=== PATIENT | female | born 1970 | race Caucasian/White ===

== ENCOUNTER 2017-10-30 20:26 | Inpatient (IN) | payer OTHER ==
[2017-10-30 21:07] VITALS: BMI 19.8
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
[2017-10-30] MEDS ORDERED: MENTHOL/PHENOL 1 EACH UD MM PRN (22:01)
[2017-10-30] MEDS ORDERED: hydrOXYzine PAMOATE 50 MG CAPSULE (FP) PO PRN (22:01)
[2017-10-30] MEDS ORDERED: MAGNESIUM HYDROX 2400MG/30ML ORAL SUSPENSION 30 ML CUP PO PRN (22:01)
[2017-10-30] MEDS ORDERED: P-EPHED 60MG/TRIPROLIDI 2.5MG TABLET PO PRN (22:01)
[2017-10-30] MEDS ORDERED: LOPERAMIDE HCL 2 MG CAPSULE PO PRN (22:01)
[2017-10-30] MEDS ORDERED: ACETAMINOPHEN 325 MG TABLET (FP) PO PRN (22:01)
[2017-10-30] MEDS ORDERED: MAG HYDROX/AL HYDROX/SIMETH 30 ML UNIT-DOSE CUP PO PRN (22:01)
[2017-10-30] MEDS ORDERED: NICOTINE POLACRILEX 2 MG GUM BC PRN (22:01)
[2017-10-30] MEDS ORDERED: MAGNESIUM CITRATE 300 ML BOTTLE PO PRN (22:01)
[2017-10-30] MEDS ORDERED: guaiFENesin/D-METHORPHAN HB 10 ML UNIT-DOSE CUPS PO PRN (22:01)
[2017-10-30] MEDS ORDERED: IBUPROFEN 400 MG TABLET (FP) PO PRN (22:01)
[2017-10-30] MEDS ORDERED: diphenhydrAMINE HCL 25 MG CAPSULE (FP) PO PRN (22:04)
[2017-10-30] MEDS ORDERED: METHADONE HCL 10 MG TABLET (FOR DETOX USE ONLY) PO ONE (23:00)
[2017-10-30] MEDS: METHADONE HCL 10 MG TABLET (FOR DETOX USE ONLY) PO ONE ×2 (23:33→23:34)
[2017-10-30] MEDS: RANITIDINE HCL 150 MG TABLET (FP) PO SCH (23:34)
[2017-10-30] MEDS: diazePAM 5 MG TABLET PO PRN (23:34)
[2017-10-31 00:51] LABS: URINE APPEARANCE CLEAR; URINE BILIRUBIN NEGATIVE (NEGATIVE); URINE BLOOD NEGATIVE (NEGATIVE); URINE COLOR DKYELLOW; URINE GLUCOSE (UA) NEGATIVE (NEGATIVE); URINE KETONE NEGATIVE (NEGATIVE); URINE LEUK ESTERASE NEGATIVE (NEGATIVE); URINE NITRITE NEGATIVE (NEGATIVE); URINE PROTEIN NEGATIVE (NEGATIVE)
[2017-10-31] MEDS ORDERED: METHADONE HCL 10 MG TABLET (FOR DETOX USE ONLY) PO ONE (10:00)
[2017-10-31 10:30] LABS: HEMOGLOBIN 12.8 GM/dL (10.7-15.3); MCHC 33.6 g/dl (32.0-36.0); MEAN CELL VOLUME 95.5 fl (80-96); MEAN PLT VOLUME 9.3 fl (7.5-11.1); PLATELET COUNT 211 K/MM3 (134-434); RBC 3.98 M/mm3 (3.60-5.2); RDW 13.2 % (11.6-15.6); WHITE BLOOD COUNT 7.9 K/mm3 (4.0-10.0)
[2017-10-31 10:35] LABS: ALBUMIN 3.8 g/dl (3.4-5.0); ANION GAP 6 (8-16); BLOOD UREA NITROGEN 20 mg/dL (7-18); CALCIUM 8.2 mg/dL (8.5-10.1); CHLORIDE 105 mmol/L (98-107); CO2 27 mmol/L (21-32); GLUCOSE,RANDOM 79 mg/dL (74-106); POTASSIUM 3.7 mmol/L (3.5-5.1); SODIUM 138 mmol/L (136-145)
[2017-10-31 10:39] LABS: ALK PHOS 66 U/L (45-117); BILIRUBIN,TOTAL 0.4 mg/dL (0.2-1.0); CREATININE 0.6 mg/dL (0.55-1.02); SGOT/AST 14 U/L (15-37); SGPT/ALT 15 U/L (12-78); TOT PROT 6.9 g/dl (6.4-8.2)
[2017-10-31] MEDS: NICOTINE 14 MG/24 HOURS TOPICAL PATCH TD SCH (10:51)
[2017-10-31] MEDS: diazePAM 5 MG TABLET PO PRN ×3 (10:51→22:45)
[2017-10-31] MEDS: PRENATAL VITAMINS W/ FOLIC ACID TABLET (FP) PO SCH (10:51)
[2017-10-31] MEDS: RANITIDINE HCL 150 MG TABLET (FP) PO SCH (10:52)
--- NOTE | 2017-10-31 16:00 | EKG ---
Test Reason : Blood Pressure : / mmHG Vent. Rate : 064 BPM Atrial Rate : 064 BPM P-R Int : 136 ms QRS Dur : 074 ms QT Int : 370 ms P-R-T Axes : 066 056 050 degrees QTc Int : 381 ms NORMAL SINUS RHYTHM NORMAL ECG NO PREVIOUS ECGS AVAILABLE Confirmed by KORI VALDOVINOS, CLINT ([id number]) on 10/31/2017 3:59:59 PM Referred By: Confirmed By:CLINT SHEIKH MD
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
--- NOTE | 2017-10-31 19:13 | PN ---
S COWS - Scale Resting Pulse: 0= [place] 80 or Below Sweatin=Flushed/Facial Moisture Restless Observation: 3= Extraneous Movement Pupil Size: 1= Pupils >than Normal Bone or Joint Aches: 1= Mild Discomfort Runny Nose/ Eye Tearin= Nasal Congestion GI Upset > 30mins: 1= Stomach Cramp Tremor Observation of Outstretched Hands: 2= Slight Tremor Visible Yawning Observation: 1= 1-2x During Session Anxiety or Irritability: 2=Irritable/Anxious Goose Flesh Skin: 0=Smooth Skin COWS Score: 14 S Progress Note (SOAP) Subjective: nausea weak shakes Objective: A & O x 3 No acute distress noted Vital Signs Temperature 98.1 F 10/31/17 18:37 Pulse Rate 72 10/31/17 18:37 Respiratory Rate 18 10/31/17 18:37 Blood Pressure 117/67 10/31/17 18:37 O2 Sat by Pulse Oximetry (%) Laboratory Last Values WBC 7.9 K/mm3 (4.0-10.0) 10/31/17 08:00 RBC 3.98 M/mm3 (3.60-5.2) 10/31/17 08:00 Hgb 12.8 GM/dL (10.7-15.3) 10/31/17 08:00 Hct 38.0 % (32.4-45.2) 10/31/17 08:00 MCV 95.5 fl (80-96) 10/31/17 08:00 MCH 32.0 pg (25.7-33.7) 10/31/17 08:00 MCHC 33.6 g/dl (32.0-36.0) 10/31/17 08:00 RDW 13.2 % (11.6-15.6) 10/31/17 08:00 Plt Count 211 K/MM3 (134-434) 10/31/17 08:00 MPV 9.3 fl (7.5-11.1) 10/31/17 08:00 Sodium 138 mmol/L (136-145) 10/31/17 08:00 Potassium 3.7 mmol/L (3.5-5.1) 10/31/17 08:00 Chloride 105 mmol/L (98-107) 10/31/17 08:00 Carbon Dioxide 27 mmol/L (21-32) 10/31/17 08:00 Anion Gap 6 (8-16) L 10/31/17 08:00 BUN 20 mg/dL (7-18) H 10/31/17 08:00 Creatinine 0.6 mg/dL (0.55-1.02) 10/31/17 08:00 Creat Clearance w eGFR > 60 (>60) 10/31/17 08:00 Random Glucose 79 mg/dL (74-106) 10/31/17 08:00 Calcium 8.2 mg/dL (8.5-10.1) L 10/31/17 08:00 Total Bilirubin 0.4 mg/dL (0.2-1.0) D 10/31/17 08:00 AST 14 U/L (15-37) L 10/31/17 08:00 ALT 15 U/L (12-78) 10/31/17 08:00 Alkaline Phosphatase 66 U/L (45-117) 10/31/17 08:00 Total Protein 6.9 g/dl (6.4-8.2) 10/31/17 08:00 Albumin 3.8 g/dl (3.4-5.0) 10/31/17 08:00 Urine Color Dkyellow 10/30/17 22:59 Urine Appearance Clear 10/30/17 22:59 Urine pH 6.0 (5.0-8.0) 10/30/17 22:59 Ur Specific [place] 1.023 (1.001-1.035) 10/30/17 22:59 Urine Protein Negative (NEGATIVE) 10/30/17 22:59 Urine Glucose (UA) Negative (NEGATIVE) 10/30/17 22:59 Urine Ketones Negative (NEGATIVE) 10/30/17 22:59 Urine Blood Negative (NEGATIVE) 10/30/17 22:59 Urine Nitrite Negative (NEGATIVE) 10/30/17 22:59 Urine Bilirubin Negative (NEGATIVE) 10/30/17 22:59 Urine Urobilinogen 2.0 mg/dL (0.2-1.0) H 10/30/17 22:59 Ur Leukocyte Esterase Negative (NEGATIVE) 10/30/17 22:59 RPR Titer Nonreactive (NONREACTIVE) 10/31/17 08:00 labs noted Assessment: 02/10/18 19:12 withdrawal sx Plan: continue detox
[2017-10-31] MEDS ORDERED: traZODone HCL 50 MG TABLET (FP) PO SCH (22:00)
[2017-10-31] MEDS: THIAMINE HCL 100 MG TABLET (FP) PO SCH (22:45)
[2017-10-31] MEDS: busPIRone HCL 10 MG TABLET (FP) PO SCH (22:45)
[2017-11-01] MEDS ORDERED: METHADONE HCL 5 MG TABLET (FOR DETOX USE ONLY) PO ONE (10:00)
[2017-11-01] MEDS: RANITIDINE HCL 150 MG TABLET (FP) PO SCH (10:42)
[2017-11-01] MEDS: PRENATAL VITAMINS W/ FOLIC ACID TABLET (FP) PO SCH (10:42)
[2017-11-01] MEDS: busPIRone HCL 10 MG TABLET (FP) PO SCH ×2 (10:42→22:39)
[2017-11-01] MEDS: diazePAM 5 MG TABLET PO PRN ×3 (10:44→22:39)
--- NOTE | 2017-11-01 10:52 | PN ---
Psychiatric Progress Note Vital Signs: Vital Signs Period Temp Pulse Resp BP Sys/Taylor Pulse Ox Last 24 Hr 95.9 F-98.1 F 48-72 16-18 101-117/57-76 Date of Session: 11/01/17 Chief Complaint:: Insomnia HPI: Patient admitted on 10/30/17 for inpatient detox for heroin and marijuana Current Medications: Active Medications Generic Name Dose Route Start Last Admin Trade Name Freq PRN Reason Stop Dose Admin Acetaminophen 650 mg 10/30/17 22:01 Tylenol - PO Q4H PRN FEVER Al Hydroxide/Mg Hydroxide 30 ml 10/30/17 22:01 Mylanta Oral Suspension - PO Q6H PRN DYSPEPSIA Bupropion HCl 150 mg 11/01/17 10:00 11/01/17 10:41 Wellbutrin Xl - PO 150 mg DAILY SONIA Administration Buspirone HCl 10 mg 10/31/17 22:00 11/01/17 10:42 Buspar - PO 10 mg BID SONIA Administration Diazepam 10 mg 10/30/17 22:01 11/01/17 10:44 Valium - PO 11/02/17 22:00 10 mg Q4H PRN Administration WITHDRAWAL(CONT SUBST) Eucalyptus/Menthol/Phenol/Sorbitol 1 each 10/30/17 22:01 Cepastat Lozenge - MM Q4H PRN SORE THROAT Guaifenesin 10 ml 10/30/17 22:01 Robitussin Dm - PO Q6H PRN COUGH Hydroxyzine Pamoate 50 mg 10/30/17 22:01 Vistaril - PO Q4H PRN AGITATION Ibuprofen 400 mg 10/30/17 22:01 Motrin - PO Q6H PRN PAIN LEVEL 4-6 Loperamide HCl 4 mg 10/30/17 22:01 Imodium - PO Q6H PRN DIARRHEA Magnesium Citrate 300 ml 10/30/17 22:01 Citroma - PO Q48H PRN CONSTIPATION Magnesium Hydroxide 30 ml 10/30/17 22:01 Milk Of Magnesia - PO DAILY PRN CONSTIPATION Methadone HCl 5 mg 11/04/17 06:00 Dolophine - PO 11/04/17 06:01 ONCE@0600 ONE Methadone HCl 15 mg 11/02/17 10:00 Dolophine - PO 11/02/17 10:01 ONCE ONE Methadone HCl 10 mg 11/03/17 10:00 Dolophine - PO 11/03/17 10:01 ONCE ONE Nicotine 14 mg 10/31/17 10:00 10/31/17 10:51 Nicoderm Patch - TD 14 mg DAILY SONIA Administration Nicotine Polacrilex 2 mg 10/30/17 22:01 Nicorette Gum - BC Q2H PRN NICOTINE REPLACEMENT RX Multivit/Folic Acid/Iron 1 tab 10/31/17 10:00 11/01/17 10:42 Vitamins (Sjr) - PO 1 tab DAILY SONIA Administration Pseudoephedrine/Triprolidine 1 combo 10/30/17 22:01 Actifed - PO TID PRN NASAL CONGESTION Ranitidine HCl 150 mg 10/30/17 23:00 11/01/17 10:42 Zantac - PO 150 mg DAILY SONIA Administration Thiamine HCl 100 mg 10/31/17 22:00 10/31/17 22:45 Vitamin B1 - PO 100 mg HS SONIA Administration Medication(s) Change(s): Increase Trazadone dosage to 100 mg po Hs Current Side Effect: No Lab tests ordered: Yes Lab tests reviewed: Yes Provider note:: Patient reports sleeping poorly despite taking Trazadone 50 mg at bedtime last night. Told marketing writer that she usually takes 150 mg at bedtime at home. Requests that medication dosage be increased to at least 100 mg Total face to face time:: 15 Mental Status Exam - Mental Status Exam Alert and Oriented to: Time, Place, Person Cognitive Function: Fair Patient Appearance: Well Groomed Mood: Hopeful, Euthymic Affect: Appropriate Patient Behavior: Cooperative Speech Pattern: Clear Voice Loudness: Normal Thought Process: Intact, Goal Oriented Thought Disorder: Not Present Hallucinations: Denies Suicidal Ideation: Denies Homicidal Ideation: Denies Insight/Judgement: Poor Sleep: Poorly Appetite: Good Muscle strength/Tone: Normal Gait/Station: Normal Psychiatric Treatment Plan - Problem List (1) Substance induced mood disorder Current Visit: Yes (2) Substance-induced sleep disorder Current Visit: Yes (3) Depressive disorder Current Visit: Yes (4) Opioid dependence with withdrawal Current Visit: Yes (5) Cannabis dependence Current Visit: Yes (6) Nicotine dependence Current Visit: Yes Qualifiers: Nicotine product type: cigarettes Substance use status: uncomplicated Qualified Code(s): F17.210 - Nicotine dependence, cigarettes, uncomplicated Initial treatment plan: 1) Discontinue Trazadone 50 mg po HS. 2) Start Trazadone 100 mg po HS. 3) Continue inpatient detoxification
--- NOTE | 2017-11-01 12:16 | PN ---
S COWS - Scale Resting Pulse: 0= [place] 80 or Below Sweatin= Chills/Flushing Restless Observation: 1= Difficult to Sit Still Pupil Size: 0= Normal to Room Light Bone or Joint Aches: 2= Severe Diffuse Aches Runny Nose/ Eye Tearin= Nasal Congestion GI Upset > 30mins: 1= Stomach Cramp Tremor Observation of Outstretched Hands: 1= Tremor [place], Not Seen Yawning Observation: 2= >3x During Session Anxiety or Irritability: 2=Irritable/Anxious Goose Flesh Skin: 0=Smooth Skin COWS Score: 11 S Progress Note (SOAP) Subjective: joint aches tremor anxiety irritable agitation Objective: 11/01/17 12:15 Vital Signs Temperature 95.9 F L 11/01/17 10:18 Pulse Rate 60 11/01/17 10:18 Respiratory Rate 18 11/01/17 10:18 Blood Pressure 117/64 11/01/17 10:18 O2 Sat by Pulse Oximetry (%) Laboratory Last Values WBC 7.9 K/mm3 (4.0-10.0) 10/31/17 08:00 RBC 3.98 M/mm3 (3.60-5.2) 10/31/17 08:00 Hgb 12.8 GM/dL (10.7-15.3) 10/31/17 08:00 Hct 38.0 % (32.4-45.2) 10/31/17 08:00 MCV 95.5 fl (80-96) 10/31/17 08:00 MCH 32.0 pg (25.7-33.7) 10/31/17 08:00 MCHC 33.6 g/dl (32.0-36.0) 10/31/17 08:00 RDW 13.2 % (11.6-15.6) 10/31/17 08:00 Plt Count 211 K/MM3 (134-434) 10/31/17 08:00 MPV 9.3 fl (7.5-11.1) 10/31/17 08:00 Sodium 138 mmol/L (136-145) 10/31/17 08:00 Potassium 3.7 mmol/L (3.5-5.1) 10/31/17 08:00 Chloride 105 mmol/L (98-107) 10/31/17 08:00 Carbon Dioxide 27 mmol/L (21-32) 10/31/17 08:00 Anion Gap 6 (8-16) L 10/31/17 08:00 BUN 20 mg/dL (7-18) H 10/31/17 08:00 Creatinine 0.6 mg/dL (0.55-1.02) 10/31/17 08:00 Creat Clearance w eGFR > 60 (>60) 10/31/17 08:00 Random Glucose 79 mg/dL (74-106) 10/31/17 08:00 Calcium 8.2 mg/dL (8.5-10.1) L 10/31/17 08:00 Total Bilirubin 0.4 mg/dL (0.2-1.0) D 10/31/17 08:00 AST 14 U/L (15-37) L 10/31/17 08:00 ALT 15 U/L (12-78) 10/31/17 08:00 Alkaline Phosphatase 66 U/L (45-117) 10/31/17 08:00 Total Protein 6.9 g/dl (6.4-8.2) 10/31/17 08:00 Albumin 3.8 g/dl (3.4-5.0) 10/31/17 08:00 Urine Color Dkyellow 10/30/17 22:59 Urine Appearance Clear 10/30/17 22:59 Urine pH 6.0 (5.0-8.0) 10/30/17 22:59 Ur Specific [place] 1.023 (1.001-1.035) 10/30/17 22:59 Urine Protein Negative (NEGATIVE) 10/30/17 22:59 Urine Glucose (UA) Negative (NEGATIVE) 10/30/17 22:59 Urine Ketones Negative (NEGATIVE) 10/30/17 22:59 Urine Blood Negative (NEGATIVE) 10/30/17 22:59 Urine Nitrite Negative (NEGATIVE) 10/30/17 22:59 Urine Bilirubin Negative (NEGATIVE) 10/30/17 22:59 Urine Urobilinogen 2.0 mg/dL (0.2-1.0) H 10/30/17 22:59 Ur Leukocyte Esterase Negative (NEGATIVE) 10/30/17 22:59 RPR Titer Nonreactive (NONREACTIVE) 10/31/17 08:00 HIV 1&2 Antibody Screen Negative 10/31/17 08:00 HIV P24 Antigen Negative 10/31/17 08:00 lab noted Assessment: 11/01/17 12:15 withdrawal sx Plan: continue detox
[2017-11-01] MEDS: NICOTINE 14 MG/24 HOURS TOPICAL PATCH TD SCH ×2 (13:03→13:13)
[2017-11-01] MEDS: THIAMINE HCL 100 MG TABLET (FP) PO SCH (22:39)
[2017-11-01] MEDS: traZODone HCL 100 MG TABLET (FP) PO SCH (22:39)
--- NOTE | 2017-11-02 09:45 | PN ---
BHS Progress Note (SOAP) Subjective: anxiety joint aches irritable restlessness agitation Objective: 11/02/17 09:44 Vital Signs Temperature 97.7 F 11/02/17 06:36 Pulse Rate 70 11/02/17 06:36 Respiratory Rate 16 11/02/17 06:36 Blood Pressure 99/59 11/02/17 06:36 O2 Sat by Pulse Oximetry (%) Laboratory Last Values WBC 7.9 K/mm3 (4.0-10.0) 10/31/17 08:00 RBC 3.98 M/mm3 (3.60-5.2) 10/31/17 08:00 Hgb 12.8 GM/dL (10.7-15.3) 10/31/17 08:00 Hct 38.0 % (32.4-45.2) 10/31/17 08:00 MCV 95.5 fl (80-96) 10/31/17 08:00 MCH 32.0 pg (25.7-33.7) 10/31/17 08:00 MCHC 33.6 g/dl (32.0-36.0) 10/31/17 08:00 RDW 13.2 % (11.6-15.6) 10/31/17 08:00 Plt Count 211 K/MM3 (134-434) 10/31/17 08:00 MPV 9.3 fl (7.5-11.1) 10/31/17 08:00 Sodium 138 mmol/L (136-145) 10/31/17 08:00 Potassium 3.7 mmol/L (3.5-5.1) 10/31/17 08:00 Chloride 105 mmol/L (98-107) 10/31/17 08:00 Carbon Dioxide 27 mmol/L (21-32) 10/31/17 08:00 Anion Gap 6 (8-16) L 10/31/17 08:00 BUN 20 mg/dL (7-18) H 10/31/17 08:00 Creatinine 0.6 mg/dL (0.55-1.02) 10/31/17 08:00 Creat Clearance w eGFR > 60 (>60) 10/31/17 08:00 Random Glucose 79 mg/dL (74-106) 10/31/17 08:00 Calcium 8.2 mg/dL (8.5-10.1) L 10/31/17 08:00 Total Bilirubin 0.4 mg/dL (0.2-1.0) D 10/31/17 08:00 AST 14 U/L (15-37) L 10/31/17 08:00 ALT 15 U/L (12-78) 10/31/17 08:00 Alkaline Phosphatase 66 U/L (45-117) 10/31/17 08:00 Total Protein 6.9 g/dl (6.4-8.2) 10/31/17 08:00 Albumin 3.8 g/dl (3.4-5.0) 10/31/17 08:00 Urine Color Dkyellow 10/30/17 22:59 Urine Appearance Clear 10/30/17 22:59 Urine pH 6.0 (5.0-8.0) 10/30/17 22:59 Ur Specific [place] 1.023 (1.001-1.035) 10/30/17 22:59 Urine Protein Negative (NEGATIVE) 10/30/17 22:59 Urine Glucose (UA) Negative (NEGATIVE) 10/30/17 22:59 Urine Ketones Negative (NEGATIVE) 10/30/17 22:59 Urine Blood Negative (NEGATIVE) 10/30/17 22:59 Urine Nitrite Negative (NEGATIVE) 10/30/17 22:59 Urine Bilirubin Negative (NEGATIVE) 10/30/17 22:59 Urine Urobilinogen 2.0 mg/dL (0.2-1.0) H 10/30/17 22:59 Ur Leukocyte Esterase Negative (NEGATIVE) 10/30/17 22:59 RPR Titer Nonreactive (NONREACTIVE) 10/31/17 08:00 HIV 1&2 Antibody Screen Negative 10/31/17 08:00 HIV P24 Antigen Negative 10/31/17 08:00 lab noted Assessment: 11/02/17 09:44 withdrawal sx Plan: continue detox
[2017-11-02] MEDS ORDERED: METHADONE HCL 5 MG TABLET (FOR DETOX USE ONLY) PO ONE (10:00)
[2017-11-02] MEDS: PRENATAL VITAMINS W/ FOLIC ACID TABLET (FP) PO SCH (10:50)
[2017-11-02] MEDS: busPIRone HCL 10 MG TABLET (FP) PO SCH ×2 (10:50→22:17)
[2017-11-02] MEDS: diazePAM 5 MG TABLET PO PRN (10:50)
[2017-11-02] MEDS: RANITIDINE HCL 150 MG TABLET (FP) PO SCH (10:51)
[2017-11-02] MEDS: NICOTINE 14 MG/24 HOURS TOPICAL PATCH TD SCH (10:52)
[2017-11-02] MEDS: traZODone HCL 100 MG TABLET (FP) PO SCH (22:17)
[2017-11-02] MEDS: THIAMINE HCL 100 MG TABLET (FP) PO SCH (22:17)
--- NOTE | 2017-11-03 09:10 | PN ---
BHS Progress Note (SOAP) Subjective: mild body aches less sweat calm alert oriented x 3 Objective: 11/03/17 09:09 Vital Signs Temperature 97.7 F 11/03/17 06:31 Pulse Rate 84 11/03/17 06:31 Respiratory Rate 18 11/03/17 06:31 Blood Pressure 106/66 11/03/17 06:31 O2 Sat by Pulse Oximetry (%) Laboratory Last Values WBC 7.9 K/mm3 (4.0-10.0) 10/31/17 08:00 RBC 3.98 M/mm3 (3.60-5.2) 10/31/17 08:00 Hgb 12.8 GM/dL (10.7-15.3) 10/31/17 08:00 Hct 38.0 % (32.4-45.2) 10/31/17 08:00 MCV 95.5 fl (80-96) 10/31/17 08:00 MCH 32.0 pg (25.7-33.7) 10/31/17 08:00 MCHC 33.6 g/dl (32.0-36.0) 10/31/17 08:00 RDW 13.2 % (11.6-15.6) 10/31/17 08:00 Plt Count 211 K/MM3 (134-434) 10/31/17 08:00 MPV 9.3 fl (7.5-11.1) 10/31/17 08:00 Sodium 138 mmol/L (136-145) 10/31/17 08:00 Potassium 3.7 mmol/L (3.5-5.1) 10/31/17 08:00 Chloride 105 mmol/L (98-107) 10/31/17 08:00 Carbon Dioxide 27 mmol/L (21-32) 10/31/17 08:00 Anion Gap 6 (8-16) L 10/31/17 08:00 BUN 20 mg/dL (7-18) H 10/31/17 08:00 Creatinine 0.6 mg/dL (0.55-1.02) 10/31/17 08:00 Creat Clearance w eGFR > 60 (>60) 10/31/17 08:00 Random Glucose 79 mg/dL (74-106) 10/31/17 08:00 Calcium 8.2 mg/dL (8.5-10.1) L 10/31/17 08:00 Total Bilirubin 0.4 mg/dL (0.2-1.0) D 10/31/17 08:00 AST 14 U/L (15-37) L 10/31/17 08:00 ALT 15 U/L (12-78) 10/31/17 08:00 Alkaline Phosphatase 66 U/L (45-117) 10/31/17 08:00 Total Protein 6.9 g/dl (6.4-8.2) 10/31/17 08:00 Albumin 3.8 g/dl (3.4-5.0) 10/31/17 08:00 Urine Color Dkyellow 10/30/17 22:59 Urine Appearance Clear 10/30/17 22:59 Urine pH 6.0 (5.0-8.0) 10/30/17 22:59 Ur Specific [place] 1.023 (1.001-1.035) 10/30/17 22:59 Urine Protein Negative (NEGATIVE) 10/30/17 22:59 Urine Glucose (UA) Negative (NEGATIVE) 10/30/17 22:59 Urine Ketones Negative (NEGATIVE) 10/30/17 22:59 Urine Blood Negative (NEGATIVE) 10/30/17 22:59 Urine Nitrite Negative (NEGATIVE) 10/30/17 22:59 Urine Bilirubin Negative (NEGATIVE) 10/30/17 22:59 Urine Urobilinogen 2.0 mg/dL (0.2-1.0) H 10/30/17 22:59 Ur Leukocyte Esterase Negative (NEGATIVE) 10/30/17 22:59 RPR Titer Nonreactive (NONREACTIVE) 10/31/17 08:00 HIV 1&2 Antibody Screen Negative 10/31/17 08:00 HIV P24 Antigen Negative 10/31/17 08:00 lab noted Assessment: 11/03/17 09:09 mild withdrawal sx Plan: medically supervised detox
[2017-11-03] MEDS ORDERED: METHADONE HCL 10 MG TABLET (FOR DETOX USE ONLY) PO ONE (10:00)
[2017-11-03] MEDS: busPIRone HCL 10 MG TABLET (FP) PO SCH ×2 (11:06→22:41)
[2017-11-03] MEDS: NICOTINE 14 MG/24 HOURS TOPICAL PATCH TD SCH (11:07)
[2017-11-03] MEDS: PRENATAL VITAMINS W/ FOLIC ACID TABLET (FP) PO SCH (11:07)
[2017-11-03] MEDS: RANITIDINE HCL 150 MG TABLET (FP) PO SCH (11:07)
[2017-11-03] MEDS: THIAMINE HCL 100 MG TABLET (FP) PO SCH (22:41)
[2017-11-03] MEDS: traZODone HCL 100 MG TABLET (FP) PO SCH (22:41)
[2017-11-04] MEDS ORDERED: METHADONE HCL 5 MG TABLET (FOR DETOX USE ONLY) PO ONE (06:00)
--- NOTE | 2017-11-04 09:25 | DS ---
[facility] Detox Discharge Summary Admission Date: 10/30/17 Discharge Date: 11/04/17 - History Present History: Opioid Dependence Additional Comments: health teaching on risks and complications if addiction - Physical Exam Results Vital Signs: Vital Signs Temperature 91.8 F L 11/04/17 04:00 Pulse Rate 71 11/04/17 04:00 Respiratory Rate 18 11/04/17 04:00 Blood Pressure 133/42 11/04/17 04:00 O2 Sat by Pulse Oximetry (%) Pertinent Admission Physical Exam Findings: withdrawal sx Laboratory Last Values WBC 7.9 K/mm3 (4.0-10.0) 10/31/17 08:00 RBC 3.98 M/mm3 (3.60-5.2) 10/31/17 08:00 Hgb 12.8 GM/dL (10.7-15.3) 10/31/17 08:00 Hct 38.0 % (32.4-45.2) 10/31/17 08:00 MCV 95.5 fl (80-96) 10/31/17 08:00 MCH 32.0 pg (25.7-33.7) 10/31/17 08:00 MCHC 33.6 g/dl (32.0-36.0) 10/31/17 08:00 RDW 13.2 % (11.6-15.6) 10/31/17 08:00 Plt Count 211 K/MM3 (134-434) 10/31/17 08:00 MPV 9.3 fl (7.5-11.1) 10/31/17 08:00 Sodium 138 mmol/L (136-145) 10/31/17 08:00 Potassium 3.7 mmol/L (3.5-5.1) 10/31/17 08:00 Chloride 105 mmol/L (98-107) 10/31/17 08:00 Carbon Dioxide 27 mmol/L (21-32) 10/31/17 08:00 Anion Gap 6 (8-16) L 10/31/17 08:00 BUN 20 mg/dL (7-18) H 10/31/17 08:00 Creatinine 0.6 mg/dL (0.55-1.02) 10/31/17 08:00 Creat Clearance w eGFR > 60 (>60) 10/31/17 08:00 Random Glucose 79 mg/dL (74-106) 10/31/17 08:00 Calcium 8.2 mg/dL (8.5-10.1) L 10/31/17 08:00 Total Bilirubin 0.4 mg/dL (0.2-1.0) D 10/31/17 08:00 AST 14 U/L (15-37) L 10/31/17 08:00 ALT 15 U/L (12-78) 10/31/17 08:00 Alkaline Phosphatase 66 U/L (45-117) 10/31/17 08:00 Total Protein 6.9 g/dl (6.4-8.2) 10/31/17 08:00 Albumin 3.8 g/dl (3.4-5.0) 10/31/17 08:00 Urine Color Dkyellow 10/30/17 22:59 Urine Appearance Clear 10/30/17 22:59 Urine pH 6.0 (5.0-8.0) 10/30/17 22:59 Ur Specific [place] 1.023 (1.001-1.035) 10/30/17 22:59 Urine Protein Negative (NEGATIVE) 10/30/17 22:59 Urine Glucose (UA) Negative (NEGATIVE) 10/30/17 22:59 Urine Ketones Negative (NEGATIVE) 10/30/17 22:59 Urine Blood Negative (NEGATIVE) 10/30/17 22:59 Urine Nitrite Negative (NEGATIVE) 10/30/17 22:59 Urine Bilirubin Negative (NEGATIVE) 10/30/17 22:59 Urine Urobilinogen 2.0 mg/dL (0.2-1.0) H 10/30/17 22:59 Ur Leukocyte Esterase Negative (NEGATIVE) 10/30/17 22:59 RPR Titer Nonreactive (NONREACTIVE) 10/31/17 08:00 HIV 1&2 Antibody Screen Negative 10/31/17 08:00 HIV P24 Antigen Negative 10/31/17 08:00 lab noted - Treatment Hospital Course: Detox Protocol Followed, Detoxed Safely, Responded well, Discharged Condition Good, Rehab Referral Accepted Patient has Accepted a Rehab Referral to: according to counselor that the patient declines aftercare - Medication Discharge Medications: Ambulatory Orders Ranitidine [Zantac -] 150 mg PO BID 04/27/15 traZODone HCL [Desyrel -] 150 mg PO HS 04/27/15 traZODone HCL [Desyrel -] 50 mg PO HS PRN #20 tablet 04/28/15 traZODone HCL [Desyrel -] 50 mg PO HS #30 tablet 08/23/16 - Diagnosis (1) Opioid dependence with withdrawal Current Visit: Yes Status: Acute - AMA Did Patient Leave Against Medical Advice: No
[2017-11-04 10:37] VITALS: BP 94/56; PULSE 79; TEMP 97.7
[2017-11-04] MEDS: NICOTINE 14 MG/24 HOURS TOPICAL PATCH TD SCH (11:13)
[2017-11-04] MEDS: busPIRone HCL 10 MG TABLET (FP) PO SCH (11:13)
[2017-11-04] MEDS: PRENATAL VITAMINS W/ FOLIC ACID TABLET (FP) PO SCH (11:13)
[2017-11-04] MEDS: RANITIDINE HCL 150 MG TABLET (FP) PO SCH (11:14)
== END 2017-11-04 11:40 | disposition home or self-care (01) | DRG 773 ==
LOC: YASAS 20:26 → Y6N 23:03
PROVIDERS: ADMIT Internal Medicine; ATTEND Internal Medicine
PROC: HZ2ZZZZ Detoxification Services for Substance Abuse Treatment (ICD-10-PCS; principal; 2017-10-30)
DX: F11.23 Opioid dependence with withdrawal (principal); F12.20 Cannabis dependence, uncomplicated; F17.210 Nicotine dependence, cigarettes, uncomplicated; F19.24 Other psychoactive substance dependence with psychoactive substance-induced mood disorder; F39 Unspecified mood [affective] disorder; G47.00 Insomnia, unspecified; K21.9 Gastro-esophageal reflux disease without esophagitis
CPT/HCPCS: 36415; 71046-TC-FY; 80053; 81003; 85027; 86593; 87389; 93005; 93010

== ENCOUNTER 2019-01-18 10:02 | Inpatient (IN) | payer OTHER ==
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
[2019-01-18] MEDS ORDERED: hydrOXYzine PAMOATE 25 MG CAPSULE (FP) PO PRN (11:35)
[2019-01-18] MEDS ORDERED: MAGNESIUM CITRATE 300 ML BOTTLE PO PRN (11:35)
[2019-01-18] MEDS ORDERED: BISMUTH SUBSALICYLATE 262 MG/15 ML BTL PO PRN (11:35)
[2019-01-18] MEDS ORDERED: NICOTINE POLACRILEX 2 MG GUM BUC PRN (11:35)
[2019-01-18] MEDS ORDERED: METHOCARBAMOL 500 MG TABLET PO PRN (11:35)
[2019-01-18] MEDS ORDERED: cloNIDine HCL 0.1 MG TABLET PO PRN (11:35)
[2019-01-18] MEDS ORDERED: MAG HYDROX/AL HYDROX/SIMETH 30 ML UNIT-DOSE CUP PO PRN (11:35)
[2019-01-18] MEDS ORDERED: MENTHOL/PHENOL 1 EACH UD MM PRN (11:35)
[2019-01-18] MEDS ORDERED: MAGNESIUM HYDROX 2400MG/30ML ORAL SUSPENSION 30 ML CUP PO PRN (11:35)
[2019-01-18] MEDS ORDERED: MELATONIN 5 MG TABLETS PO PRN (11:35)
[2019-01-18] MEDS ORDERED: ACETAMINOPHEN 325 MG TABLET (FP) PO PRN ×2 (11:35)
[2019-01-18] MEDS ORDERED: IBUPROFEN 400 MG TABLET (FP) PO PRN (11:35)
[2019-01-18] MEDS ORDERED: chlordiazePOXIDE HCL 25 MG CAPSULE PO PRN (11:40)
[2019-01-18] MEDS: NICOTINE 21 MG/24 HOURS TOPICAL PATCH TD SCH (12:48)
[2019-01-18 14:54] LABS: HEMATOCRIT 40.6 % (32.4-45.2); HEMOGLOBIN 14.2 GM/dL (10.7-15.3); MCH 33.8 pg (25.7-33.7); MCHC 34.9 g/dl (32.0-36.0); MEAN CELL VOLUME 96.8 fl (80-96); MEAN PLT VOLUME 9.3 fl (7.5-11.1); PLATELET COUNT 268 K/MM3 (134-434); RBC 4.19 M/mm3 (3.60-5.2); RDW 13.9 % (11.6-15.6); WHITE BLOOD COUNT 6.7 K/mm3 (4.0-10.0)
[2019-01-18 15:04] LABS: ALBUMIN 3.8 g/dl (3.4-5.0); ALK PHOS 99 U/L (45-117); ANION GAP 6 MMOL/L (8-16); BILIRUBIN,TOTAL 0.4 mg/dL (0.2-1); BLOOD UREA NITROGEN 10 mg/dL (7-18); CALCIUM 8.8 mg/dL (8.5-10.1); CHLORIDE 103 mmol/L (98-107); CO2 28 mmol/L (21-32); CREATININE 0.6 mg/dL (0.55-1.3); GLUCOSE,RANDOM 111 mg/dL (74-106); POTASSIUM 4.1 mmol/L (3.5-5.1); SGOT/AST 28 U/L (15-37); SGPT/ALT 24 U/L (13-61); SODIUM 137 mmol/L (136-145); TOT PROT 7.8 g/dl (6.4-8.2)
[2019-01-18] MEDS ORDERED: METHADONE HCL 10 MG TABLET (FOR DETOX USE ONLY) PO ONE ×2 (15:08→23:00)
[2019-01-18] MEDS: FLUOCINONIDE 0.05% CREAM (15 GM TUBE) TP SCH ×3 (15:12→22:11)
[2019-01-18] MEDS: chlordiazePOXIDE HCL 25 MG CAPSULE PO SCH ×2 (17:34→22:09)
[2019-01-18] MEDS: RANITIDINE HCL 150 MG TABLET (FP) PO SCH (22:08)
[2019-01-18] MEDS: THIAMINE HCL 100 MG TABLET (FP) PO SCH (22:08)
[2019-01-18] MEDS: HYDROCORTISONE 2.5% TOPICAL CREAM 30 GM TUBE PR SCH (22:11)
[2019-01-19] MEDS: chlordiazePOXIDE HCL 25 MG CAPSULE PO SCH ×4 (05:42→22:19)
[2019-01-19] MEDS ORDERED: METHADONE HCL 10 MG TABLET (FOR DETOX USE ONLY) PO ONE (10:00)
--- NOTE | 2019-01-19 10:12 | PN ---
[facility] CIWA - CIWA Score Nausea/Vomitin-Mild Nausea/No Vomiting Muscle Tremors: 3 Anxiety: 2 Agitation: 3 Paroxysmal Sweats: 1-Minimal Palms Moist Orientation: 2-Disoriented Date<2 days Tacttile Disturbances: 0-None Auditory Disturbances: 0-None Visual Disturbances: 0-None Headache: 1-Very Mild CIWA-Ar Total Score: 13 BHS COWS - Scale Resting Pulse: 1= [place] 81-100 Sweatin= Chills/Flushing Restless Observation: 0= Sits Still Pupil Size: 0= Normal to Room Light Bone or Joint Aches: 1= Mild Discomfort Runny Nose/ Eye Tearin= Nasal Congestion GI Upset > 30mins: 1= Stomach Cramp Tremor Observation of Outstretched Hands: 2= Slight Tremor Visible Yawning Observation: 1= 1-2x During Session Anxiety or Irritability: 2=Irritable/Anxious Goose Flesh Skin: 3=[place] COWS Score: 13 S Progress Note (SOAP) Subjective: tremor body aches doing well with librium and methadone otherwise feeling ok Objective: 01/19/19 10:12 Vital Signs Temperature 96.1 F L 01/19/19 09:29 Pulse Rate 81 01/19/19 09:29 Respiratory Rate 20 01/19/19 09:29 Blood Pressure 95/68 01/19/19 09:29 O2 Sat by Pulse Oximetry (%) Laboratory Last Values WBC 6.7 K/mm3 (4.0-10.0) 01/18/19 11:45 RBC 4.19 M/mm3 (3.60-5.2) 01/18/19 11:45 Hgb 14.2 GM/dL (10.7-15.3) 01/18/19 11:45 Hct 40.6 % (32.4-45.2) 01/18/19 11:45 MCV 96.8 fl (80-96) H 01/18/19 11:45 MCH 33.8 pg (25.7-33.7) H 01/18/19 11:45 MCHC 34.9 g/dl (32.0-36.0) 01/18/19 11:45 RDW 13.9 % (11.6-15.6) 01/18/19 11:45 Plt Count 268 K/MM3 (134-434) D 01/18/19 11:45 MPV 9.3 fl (7.5-11.1) 01/18/19 11:45 Sodium 137 mmol/L (136-145) 01/18/19 11:45 Potassium 4.1 mmol/L (3.5-5.1) 01/18/19 11:45 Chloride 103 mmol/L (98-107) 01/18/19 11:45 Carbon Dioxide 28 mmol/L (21-32) 01/18/19 11:45 Anion Gap 6 MMOL/L (8-16) L 01/18/19 11:45 BUN 10 mg/dL (7-18) 01/18/19 11:45 Creatinine 0.6 mg/dL (0.55-1.3) 01/18/19 11:45 Creat Clearance w eGFR 105.82 (>60) 01/18/19 11:45 Random Glucose 111 mg/dL (74-106) H 01/18/19 11:45 Calcium 8.8 mg/dL (8.5-10.1) 01/18/19 11:45 Total Bilirubin 0.4 mg/dL (0.2-1) 01/18/19 11:45 AST 28 U/L (15-37) 01/18/19 11:45 ALT 24 U/L (13-61) 01/18/19 11:45 Alkaline Phosphatase 99 U/L (45-117) 01/18/19 11:45 Total Protein 7.8 g/dl (6.4-8.2) 01/18/19 11:45 Albumin 3.8 g/dl (3.4-5.0) 01/18/19 11:45 POC Urine HCG, Qual Negative 01/18/19 10:49 HIV 1&2 Antibody Screen Negative 01/18/19 11:45 HIV P24 Antigen Negative 01/18/19 11:45 lab noted Assessment: 01/19/19 10:13 withdrawal sx Plan: continue detox
[2019-01-19] MEDS: RANITIDINE HCL 150 MG TABLET (FP) PO SCH ×2 (10:29→22:19)
[2019-01-19] MEDS: PRENATAL VITAMINS W/ FOLIC ACID TABLET (FP) PO SCH (10:29)
[2019-01-19] MEDS: FLUOCINONIDE 0.05% CREAM (15 GM TUBE) TP SCH ×4 (10:30→22:20)
[2019-01-19] MEDS: NICOTINE 21 MG/24 HOURS TOPICAL PATCH TD SCH (10:31)
[2019-01-19] MEDS: THIAMINE HCL 100 MG TABLET (FP) PO SCH (22:19)
[2019-01-19] MEDS: HYDROCORTISONE 2.5% TOPICAL CREAM 30 GM TUBE PR SCH (22:20)
[2019-01-20] MEDS: chlordiazePOXIDE HCL 25 MG CAPSULE PO SCH ×2 (06:07→10:15)
[2019-01-20] MEDS ORDERED: METHADONE HCL 10 MG TABLET (FOR DETOX USE ONLY) PO ONE (10:00)
[2019-01-20] MEDS: FLUOCINONIDE 0.05% CREAM (15 GM TUBE) TP SCH ×4 (10:14→21:36)
[2019-01-20] MEDS: RANITIDINE HCL 150 MG TABLET (FP) PO SCH ×2 (10:15→21:36)
[2019-01-20] MEDS: NICOTINE 21 MG/24 HOURS TOPICAL PATCH TD SCH (10:15)
[2019-01-20] MEDS: PRENATAL VITAMINS W/ FOLIC ACID TABLET (FP) PO SCH (10:15)
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
--- NOTE | 2019-01-20 12:43 | PN ---
[facility] CIWA - CIWA Score Nausea/Vomitin-Mild Nausea/No Vomiting Muscle Tremors: 2 Anxiety: 2 Agitation: 2 Paroxysmal Sweats: 1-Minimal Palms Moist Orientation: 0-Oriented Tacttile Disturbances: 0-None Auditory Disturbances: 0-None Visual Disturbances: 0-None Headache: 1-Very Mild CIWA-Ar Total Score: 9 BHS COWS - Scale Resting Pulse: 0= [place] 80 or Below Sweatin= Chills/Flushing Restless Observation: 1= Difficult to Sit Still Pupil Size: 0= Normal to Room Light Bone or Joint Aches: 1= Mild Discomfort Runny Nose/ Eye Tearin= Nasal Congestion GI Upset > 30mins: 2= Nausea/Diarrhea Tremor Observation of Outstretched Hands: 1= Tremor [place], Not Seen Yawning Observation: 1= 1-2x During Session Anxiety or Irritability: 1=Feels Anxious/Irritable Goose Flesh Skin: 0=Smooth Skin COWS Score: 9 [facility] Progress Note (SOAP) Subjective: body ache tolerate food and fluid well ambulate on hallway attend morning meeting Objective: 01/20/19 12:42 Vital Signs Temperature 96.6 F L 01/20/19 09:21 Pulse Rate 75 01/20/19 09:21 Respiratory Rate 18 01/20/19 09:21 Blood Pressure 106/73 01/20/19 09:21 O2 Sat by Pulse Oximetry (%) Laboratory Last Values WBC 6.7 K/mm3 (4.0-10.0) 01/18/19 11:45 RBC 4.19 M/mm3 (3.60-5.2) 01/18/19 11:45 Hgb 14.2 GM/dL (10.7-15.3) 01/18/19 11:45 Hct 40.6 % (32.4-45.2) 01/18/19 11:45 MCV 96.8 fl (80-96) H 01/18/19 11:45 MCH 33.8 pg (25.7-33.7) H 01/18/19 11:45 MCHC 34.9 g/dl (32.0-36.0) 01/18/19 11:45 RDW 13.9 % (11.6-15.6) 01/18/19 11:45 Plt Count 268 K/MM3 (134-434) D 01/18/19 11:45 MPV 9.3 fl (7.5-11.1) 01/18/19 11:45 Sodium 137 mmol/L (136-145) 01/18/19 11:45 Potassium 4.1 mmol/L (3.5-5.1) 01/18/19 11:45 Chloride 103 mmol/L (98-107) 01/18/19 11:45 Carbon Dioxide 28 mmol/L (21-32) 01/18/19 11:45 Anion Gap 6 MMOL/L (8-16) L 01/18/19 11:45 BUN 10 mg/dL (7-18) 01/18/19 11:45 Creatinine 0.6 mg/dL (0.55-1.3) 01/18/19 11:45 Creat Clearance w eGFR 105.82 (>60) 01/18/19 11:45 Random Glucose 111 mg/dL (74-106) H 01/18/19 11:45 Calcium 8.8 mg/dL (8.5-10.1) 01/18/19 11:45 Total Bilirubin 0.4 mg/dL (0.2-1) 01/18/19 11:45 AST 28 U/L (15-37) 01/18/19 11:45 ALT 24 U/L (13-61) 01/18/19 11:45 Alkaline Phosphatase 99 U/L (45-117) 01/18/19 11:45 Total Protein 7.8 g/dl (6.4-8.2) 01/18/19 11:45 Albumin 3.8 g/dl (3.4-5.0) 01/18/19 11:45 POC Urine HCG, Qual Negative 01/18/19 10:49 RPR Titer Nonreactive (NONREACTIVE) 01/18/19 11:45 HIV 1&2 Antibody Screen Negative 01/18/19 11:45 HIV P24 Antigen Negative 01/18/19 11:45 lab noted Assessment: withdrawal sx Plan: continue detox
[2019-01-20] MEDS ORDERED: chlordiazePOXIDE HCL 10 MG CAPSULE PO PRN (17:00)
[2019-01-20] MEDS: chlordiazePOXIDE HCL 10 MG CAPSULE PO SCH ×2 (17:27→22:11)
[2019-01-20] MEDS: HYDROCORTISONE 2.5% TOPICAL CREAM 30 GM TUBE PR SCH (21:34)
[2019-01-20] MEDS: THIAMINE HCL 100 MG TABLET (FP) PO SCH (21:35)
[2019-01-20] MEDS: traZODone HCL 50 MG TABLET (FP) PO SCH (22:11)
[2019-01-21] MEDS: chlordiazePOXIDE HCL 10 MG CAPSULE PO SCH ×3 (06:09→17:14)
[2019-01-21] MEDS ORDERED: METHADONE HCL 5 MG TABLET (FOR DETOX USE ONLY) ONE (09:30)
[2019-01-21] MEDS ORDERED: METHADONE HCL 10 MG TABLET (FOR DETOX USE ONLY) ONE (09:30)
[2019-01-21] MEDS ORDERED: METHADONE HCL 10 MG TABLET (FOR DETOX USE ONLY) PO ONE (10:00)
[2019-01-21] MEDS ORDERED: METHADONE (DETOX) 10 MG, METHADONE (DETOX) 5 MG PO ONE (10:00)
[2019-01-21] MEDS: PRENATAL VITAMINS W/ FOLIC ACID TABLET (FP) PO SCH (10:17)
[2019-01-21] MEDS: RANITIDINE HCL 150 MG TABLET (FP) PO SCH ×2 (10:18→22:11)
[2019-01-21] MEDS: FLUOCINONIDE 0.05% CREAM (15 GM TUBE) TP SCH ×4 (10:18→22:10)
[2019-01-21] MEDS: NICOTINE 21 MG/24 HOURS TOPICAL PATCH TD SCH (10:19)
--- NOTE | 2019-01-21 15:40 | PN ---
[facility] CIWA - CIWA Score Nausea/Vomitin-No Nausea/No Vomiting Muscle Tremors: 1-None Visible, but [place] Anxiety: 1-Mildly Anxious Agitation: 1-Slight > Activity Paroxysmal Sweats: No Perspiration Orientation: 0-Oriented Tacttile Disturbances: 0-None Auditory Disturbances: 0-None Visual Disturbances: 0-None Headache: 0-None Present CIWA-Ar Total Score: 3 S COWS - Scale Resting Pulse: 0= [place] 80 or Below Sweatin= No chills or Flushing Restless Observation: 1= Difficult to Sit Still Pupil Size: 0= Normal to Room Light Bone or Joint Aches: 1= Mild Discomfort Runny Nose/ Eye Tearin= None GI Upset > 30mins: 0= None Tremor Observation of Outstretched Hands: 0= None Yawning Observation: 0= None Anxiety or Irritability: 1=Feels Anxious/Irritable Goose Flesh Skin: 0=Smooth Skin COWS Score: 3 S Progress Note (SOAP) Subjective: pt doing well on librium and methadone detox protocol O: Vital Signs - 24 hr 01/20/19 01/20/19 01/20/19 17:19 17:20 21:51 Temperature 97.8 F 97.7 F Pulse Rate 73 68 Respiratory 18 18 Rate Blood Pressure 81/54 L 83/56 L 94/63 01/21/19 01/21/19 01/21/19 03:30 06:43 09:18 Temperature 96.7 F L 97.4 F L Pulse Rate 50 L 74 Respiratory 18 16 18 Rate Blood Pressure 90/60 109/76 01/21/19 13:32 Temperature 97 F L Pulse Rate 80 Respiratory 18 Rate Blood Pressure 93/66 Laboratory Tests 01/18/19 01/18/19 01/18/19 10:49 11:30 11:45 WBC 6.7 RBC 4.19 Hgb 14.2 Hct 40.6 MCV 96.8 H MCH 33.8 H MCHC 34.9 RDW 13.9 Plt Count 268 D MPV 9.3 Sodium Potassium Chloride Carbon Dioxide Anion Gap BUN Creatinine Creat Clearance w eGFR Random Glucose Calcium Total Bilirubin AST ALT Alkaline Phosphatase Total Protein Albumin POC Urine HCG, Qual Negative RPR Titer HIV 1&2 Antibody Screen Cancelled HIV P24 Antigen Cancelled 01/18/19 01/18/19 01/18/19 11:45 11:45 11:45 WBC RBC Hgb Hct MCV MCH MCHC RDW Plt Count MPV Sodium 137 Potassium 4.1 Chloride 103 Carbon Dioxide 28 Anion Gap 6 L BUN 10 Creatinine 0.6 Creat Clearance w eGFR 105.82 Random Glucose 111 H Calcium 8.8 Total Bilirubin 0.4 AST 28 ALT 24 Alkaline Phosphatase 99 Total Protein 7.8 Albumin 3.8 POC Urine HCG, Qual RPR Titer Nonreactive HIV 1&2 Antibody Screen Negative HIV P24 Antigen Negative a/p continue alcohol and heroin detox protocols, pt wants to leave tomorrow to get ready for work on Thursday- d/c order done
[2019-01-21] MEDS: traZODone HCL 50 MG TABLET (FP) PO SCH (22:09)
[2019-01-21] MEDS: THIAMINE HCL 100 MG TABLET (FP) PO SCH (22:10)
[2019-01-21] MEDS: HYDROCORTISONE 2.5% TOPICAL CREAM 30 GM TUBE PR SCH (22:10)
[2019-01-22] MEDS ORDERED: METHADONE HCL 5 MG TABLET (FOR DETOX USE ONLY) PO ONE ×2 (06:00→09:00)
[2019-01-22] MEDS: chlordiazePOXIDE HCL 10 MG CAPSULE PO SCH (06:08)
[2019-01-22 06:20] VITALS: BP 98/54; PULSE 81; TEMP 96.9
[2019-01-22] MEDS ORDERED: METHADONE HCL 10 MG TABLET (FOR DETOX USE ONLY) PO ONE (10:00)
--- NOTE | 2019-01-22 10:38 | DS ---
[facility] Detox Discharge Summary Admission Date: 01/18/19 Discharge Date: 01/22/19 - History Present History: Cannabis Dependence, Opioid Dependence Additional Comments: PT REPORTS SHE HAS A PCP, DR. TRUONG AT [place], [place] FOR MEDICAL MANAGEMENT. ENCOURAGED TO FOLLOW UP WITH PROVIDER 1-2 WEEKS AFTER DISCHARGE. - Physical Exam Results Vital Signs: Vital Signs Temperature 96.9 F L 01/22/19 06:20 Pulse Rate 81 01/22/19 06:20 Respiratory Rate 18 01/22/19 06:30 Blood Pressure 98/54 L 01/22/19 06:20 O2 Sat by Pulse Oximetry (%) Pertinent Admission Physical Exam Findings: WITHDRAWAL SX Laboratory Tests 01/18/19 01/18/19 01/18/19 10:49 11:30 11:45 WBC 6.7 RBC 4.19 Hgb 14.2 Hct 40.6 MCV 96.8 H MCH 33.8 H MCHC 34.9 RDW 13.9 Plt Count 268 D MPV 9.3 Sodium Potassium Chloride Carbon Dioxide Anion Gap BUN Creatinine Creat Clearance w eGFR Random Glucose Calcium Total Bilirubin AST ALT Alkaline Phosphatase Total Protein Albumin POC Urine HCG, Qual Negative RPR Titer HIV 1&2 Antibody Screen Cancelled HIV P24 Antigen Cancelled 01/18/19 01/18/19 01/18/19 11:45 11:45 11:45 WBC RBC Hgb Hct MCV MCH MCHC RDW Plt Count MPV Sodium 137 Potassium 4.1 Chloride 103 Carbon Dioxide 28 Anion Gap 6 L BUN 10 Creatinine 0.6 Creat Clearance w eGFR 105.82 Random Glucose 111 H Calcium 8.8 Total Bilirubin 0.4 AST 28 ALT 24 Alkaline Phosphatase 99 Total Protein 7.8 Albumin 3.8 POC Urine HCG, Qual RPR Titer Nonreactive HIV 1&2 Antibody Screen Negative HIV P24 Antigen Negative - Treatment Hospital Course: Detox Protocol Followed, Detoxed Safely, Responded well, Discharged Condition Good Patient has Accepted a Rehab Referral to: REFERRED TO [facility] BUT STATES GOING HOME TODAY. - Medication Discharge Medications: Ambulatory Orders Ranitidine HCl [Zantac] 150 mg PO BID 01/18/19 traZODone HCL [Trazodone HCl] 150 mg PO HS 01/18/19 - AMA Did Patient Leave Against Medical Advice: No
[2019-01-23] MEDS ORDERED: METHADONE HCL 5 MG TABLET (FOR DETOX USE ONLY) PO ONE (06:00)
== END 2019-01-22 09:01 | disposition home or self-care (01) | DRG 773 ==
LOC: YASAS 10:02 → Y3N 11:38
PROVIDERS: ADMIT Surgery; ATTEND Surgery
PROC: HZ2ZZZZ Detoxification Services for Substance Abuse Treatment (ICD-10-PCS; principal; 2019-01-18)
DX: F11.23 Opioid dependence with withdrawal (principal); F10.230 Alcohol dependence with withdrawal, uncomplicated; F12.20 Cannabis dependence, uncomplicated; F19.24 Other psychoactive substance dependence with psychoactive substance-induced mood disorder; F19.282 Other psychoactive substance dependence with psychoactive substance-induced sleep disorder; F34.1 Dysthymic disorder; D64.9 Anemia, unspecified; E86.0 Dehydration; L30.9 Dermatitis, unspecified; M54.5 Low back pain; K21.9 Gastro-esophageal reflux disease without esophagitis; R63.4 Abnormal weight loss; Z68.20 Body mass index [BMI] 20.0-20.9, adult; Z86.19 Personal history of other infectious and parasitic diseases
CPT/HCPCS: 36415; 71046-TC-FY; 80053; 81025; 85027; 86593; 87389

== ENCOUNTER 2021-01-18 22:48 | Inpatient (IN) | payer OTHER ==
[2021-01-18 23:28] VITALS: BMI 21.6
[2021-01-18] MEDS ORDERED: ONDANSETRON *ODT* 4 MG TABLET SL PRN (23:35)
[2021-01-18] MEDS ORDERED: MAGNESIUM CITRATE 300 ML BOTTLE PO PRN (23:35)
[2021-01-18] MEDS ORDERED: NALOXONE HCL 0.4 MG/ML VIAL IM PRN (23:35)
[2021-01-18] MEDS ORDERED: MAG HYDROX/AL HYDROX/SIMETH 30 ML UNIT-DOSE CUP PO PRN (23:35)
[2021-01-18] MEDS ORDERED: ACETAMINOPHEN 325 MG TABLET (FP) PO PRN ×2 (23:35)
[2021-01-18] MEDS ORDERED: P-EPHED 60MG/TRIPROLIDI 2.5MG TABLET PO PRN (23:35)
[2021-01-18] MEDS ORDERED: DICYCLOMINE HCL 10 MG CAPSULE PO PRN (23:35)
[2021-01-18] MEDS ORDERED: guaiFENesin 200 MG/10 ML 10 ML UNIT-DOSE CUPS PO PRN (23:35)
[2021-01-18] MEDS ORDERED: NALOXONE (NARCAN) HCL 4 MG/0.1 ML SPRAY NS PRN (23:35)
[2021-01-18] MEDS ORDERED: hydrOXYzine PAMOATE 25 MG CAPSULE (FP) PO PRN (23:35)
[2021-01-18] MEDS ORDERED: IBUPROFEN 400 MG TABLET (FP) PO PRN (23:35)
[2021-01-18] MEDS ORDERED: BISMUTH SUBSALICYLATE 524 MG/30 ML UD PO PRN (23:35)
[2021-01-18] MEDS ORDERED: MAGNESIUM HYDROX 2400MG/30ML ORAL SUSPENSION 30 ML CUP PO PRN (23:35)
[2021-01-18] MEDS ORDERED: MENTHOL/PHENOL 1 EACH UD MM PRN (23:35)
[2021-01-18] MEDS ORDERED: NICOTINE POLACRILEX 2 MG GUM BUC PRN (23:35)
[2021-01-18] MEDS ORDERED: METHADONE HCL 10 MG TABLET (FOR DETOX USE ONLY) PO ONE (23:48)
[2021-01-18] MEDS ORDERED: cloNIDine HCL 0.1 MG TABLET PO PRN (23:48)
[2021-01-18] MEDS ORDERED: METHADONE HCL 10 MG TABLET (FOR DETOX USE ONLY) ONE (23:58)
[2021-01-19] MEDS ORDERED: diazePAM 5 MG TABLET ONE
[2021-01-19] MEDS: diazePAM 5 MG TABLET PO PRN ×2 (00:05→09:45)
[2021-01-19] MEDS ORDERED: METHOCARBAMOL 500 MG TABLET ONE (03:36)
[2021-01-19] MEDS: METHOCARBAMOL 500 MG TABLET PO PRN (03:37)
[2021-01-19] MEDS ORDERED: METHADONE HCL 5 MG TABLET (FOR DETOX USE ONLY) ONE (09:17)
[2021-01-19] MEDS ORDERED: METHADONE HCL 10 MG TABLET (FOR DETOX USE ONLY) ONE (09:17)
[2021-01-19] MEDS: PRENATAL VITAMINS W/ FOLIC ACID TABLET (FP) PO SCH (09:45)
[2021-01-19] MEDS: NICOTINE 21 MG/24 HOURS TOPICAL PATCH TD SCH (09:45)
[2021-01-19] MEDS ORDERED: METHADONE (DETOX) 20 MG, METHADONE (DETOX) 5 MG PO ONE (10:00)
[2021-01-19 10:01] LABS: HEMATOCRIT 39.4 % (32.4-45.2); HEMOGLOBIN 13.7 GM/dL (10.7-15.3); MCH 34.1 pg (25.7-33.7); MCHC 34.8 g/dl (32.0-36.0); MEAN CELL VOLUME 97.9 fl (80-96); MEAN PLT VOLUME 9.2 fl (7.5-11.1); PLATELET COUNT 241 K/MM3 (134-434); RBC 4.02 M/mm3 (3.60-5.2); RDW 13.9 % (11.6-15.6); WHITE BLOOD COUNT 6.5 K/mm3 (4.0-10.0)
[2021-01-19 10:17] LABS: BLOOD UREA NITROGEN 18.5 mg/dL (7-18)
[2021-01-19 10:18] LABS: ALBUMIN 3.4 g/dl (3.4-5.0); CALCIUM 8.3 mg/dL (8.5-10.1)
[2021-01-19 10:20] LABS: CREATININE 0.8 mg/dL (0.55-1.3)
[2021-01-19 10:21] LABS: BILIRUBIN,TOTAL 0.3 mg/dL (0.2-1)
[2021-01-19 10:22] LABS: TOT PROT 7.1 g/dl (6.4-8.2)
[2021-01-19] MEDS: MELATONIN 5 MG TABLETS PO SCH (22:50)
[2021-01-19] MEDS: QUEtiapine FUMARATE 50 MG TABLET PO SCH (22:50)
[2021-01-19] MEDS: THIAMINE HCL 100 MG TABLET (FP) PO SCH (22:50)
[2021-01-20] MEDS ORDERED: METHADONE HCL 10 MG TABLET (FOR DETOX USE ONLY) PO ONE (10:00)
[2021-01-20] MEDS: NICOTINE 21 MG/24 HOURS TOPICAL PATCH TD SCH (10:09)
[2021-01-20] MEDS: PRENATAL VITAMINS W/ FOLIC ACID TABLET (FP) PO SCH (10:10)
[2021-01-20] MEDS: diazePAM 5 MG TABLET PO PRN ×3 (10:10→22:30)
[2021-01-20] MEDS: MELATONIN 5 MG TABLETS PO SCH (22:27)
[2021-01-20] MEDS: THIAMINE HCL 100 MG TABLET (FP) PO SCH (22:27)
[2021-01-20] MEDS: QUEtiapine FUMARATE 50 MG TABLET PO SCH (22:27)
[2021-01-21] MEDS ORDERED: METHADONE HCL 10 MG TABLET (FOR DETOX USE ONLY) ONE (08:37)
[2021-01-21] MEDS ORDERED: METHADONE HCL 5 MG TABLET (FOR DETOX USE ONLY) ONE (08:37)
[2021-01-21] MEDS ORDERED: METHADONE (DETOX) 10 MG, METHADONE (DETOX) 5 MG PO ONE (10:00)
[2021-01-21] MEDS: PRENATAL VITAMINS W/ FOLIC ACID TABLET (FP) PO SCH (10:11)
[2021-01-21] MEDS: NICOTINE 21 MG/24 HOURS TOPICAL PATCH TD SCH (10:11)
[2021-01-21] MEDS: diazePAM 5 MG TABLET PO PRN ×3 (10:14→22:06)
[2021-01-21] MEDS ORDERED: ACETAMINOPHEN 325 MG TABLET (FP) PO ONE (10:51)
[2021-01-21] MEDS: QUEtiapine FUMARATE 50 MG TABLET PO SCH (22:05)
[2021-01-21] MEDS: THIAMINE HCL 100 MG TABLET (FP) PO SCH (22:05)
[2021-01-22] MEDS: MELATONIN 5 MG TABLETS PO SCH ×2 (00:24→21:08)
[2021-01-22] MEDS ORDERED: METHADONE HCL 10 MG TABLET (FOR DETOX USE ONLY) PO ONE (10:00)
[2021-01-22] MEDS: PRENATAL VITAMINS W/ FOLIC ACID TABLET (FP) PO SCH (10:15)
[2021-01-22] MEDS: METHOCARBAMOL 500 MG TABLET PO PRN (10:15)
[2021-01-22] MEDS: NICOTINE 21 MG/24 HOURS TOPICAL PATCH TD SCH (10:15)
[2021-01-22 14:07] LABS: SARS-CoV-2 NAA Not Detected (Not Detected)
[2021-01-22] MEDS: THIAMINE HCL 100 MG TABLET (FP) PO SCH (21:08)
[2021-01-22] MEDS: QUEtiapine FUMARATE 50 MG TABLET PO SCH (21:08)
[2021-01-23] MEDS ORDERED: METHADONE HCL 5 MG TABLET (FOR DETOX USE ONLY) PO ONE (06:00)
[2021-01-23] MEDS: NICOTINE 21 MG/24 HOURS TOPICAL PATCH TD SCH (10:04)
[2021-01-23] MEDS: PRENATAL VITAMINS W/ FOLIC ACID TABLET (FP) PO SCH (10:04)
[2021-01-23 10:05] VITALS: BP 100/82; PULSE 69; TEMP 97.3
== END 2021-01-23 12:20 | disposition other institution (70) | DRG 773 ==
LOC: YASAS 22:48 → Y6N 01-19 08:05 → UNDOADMIN 01-19 08:05 → Y6N 01-20 21:19
PROVIDERS: ADMIT Allergy & Immunology; ATTEND Allergy & Immunology
PROC: HZ2ZZZZ Detoxification Services for Substance Abuse Treatment (ICD-10-PCS; principal; 2021-01-19)
DX: F11.23 Opioid dependence with withdrawal (principal); F10.230 Alcohol dependence with withdrawal, uncomplicated; F12.20 Cannabis dependence, uncomplicated; F17.210 Nicotine dependence, cigarettes, uncomplicated; F19.282 Other psychoactive substance dependence with psychoactive substance-induced sleep disorder; F19.24 Other psychoactive substance dependence with psychoactive substance-induced mood disorder; G47.00 Insomnia, unspecified; K21.9 Gastro-esophageal reflux disease without esophagitis; J45.909 Unspecified asthma, uncomplicated; B18.2 Chronic viral hepatitis C; M54.5 Low back pain; R63.4 Abnormal weight loss; Z68.21 Body mass index [BMI] 21.0-21.9, adult; Z86.11 Personal history of tuberculosis; Z91.19 Patient's noncompliance with other medical treatment and regimen
CPT/HCPCS: 36415; 71046-TC-FY; 80053; 81025; 82962; 85027; 86780; 93005; 93010; C9803; J0735; Q0162; U0003; U0005

== ENCOUNTER 2021-01-23 12:44 | Inpatient (IN) | payer OTHER ==
[2021-01-23] MEDS ORDERED: MENTHOL/PHENOL 1 EACH UD MM PRN (14:37)
[2021-01-23] MEDS ORDERED: ACETAMINOPHEN 325 MG TABLET (FP) PO PRN (14:37)
[2021-01-23] MEDS ORDERED: P-EPHED 60MG/TRIPROLIDI 2.5MG TABLET PO PRN (14:37)
[2021-01-23] MEDS ORDERED: LOPERAMIDE HCL 2 MG CAPSULE PO PRN (14:37)
[2021-01-23] MEDS ORDERED: MAGNESIUM HYDROX 2400MG/30ML ORAL SUSPENSION 30 ML CUP PO PRN (14:37)
[2021-01-23] MEDS ORDERED: NICOTINE POLACRILEX 2 MG GUM BUC PRN (14:37)
[2021-01-23] MEDS ORDERED: guaiFENesin 200 MG/10 ML 10 ML UNIT-DOSE CUPS PO PRN (14:37)
[2021-01-23] MEDS ORDERED: MAGNESIUM CITRATE 300 ML BOTTLE PO PRN (14:37)
[2021-01-23] MEDS ORDERED: MAG HYDROX/AL HYDROX/SIMETH 30 ML UNIT-DOSE CUP PO PRN (14:37)
[2021-01-23] MEDS: hydrOXYzine PAMOATE 25 MG CAPSULE (FP) PO PRN (19:58)
[2021-01-23] MEDS: IBUPROFEN 400 MG TABLET (FP) PO PRN (19:58)
[2021-01-23] MEDS: THIAMINE HCL 100 MG TABLET (FP) PO SCH (21:04)
[2021-01-23] MEDS: QUEtiapine FUMARATE 50 MG TABLET PO SCH (21:04)
[2021-01-23] MEDS: MELATONIN 5 MG TABLETS PO SCH (21:04)
[2021-01-24] MEDS: PRENATAL VITAMINS W/ FOLIC ACID TABLET (FP) PO SCH (10:37)
[2021-01-24] MEDS: NICOTINE 7 MG/24 HOURS TOPICAL PATCH TD SCH (10:38)
[2021-01-24] MEDS: hydrOXYzine PAMOATE 25 MG CAPSULE (FP) PO PRN ×2 (10:39→22:09)
[2021-01-24] MEDS: IBUPROFEN 400 MG TABLET (FP) PO PRN ×2 (10:39→22:08)
[2021-01-24 11:47] LABS: URINE APPEARANCE CLEAR; URINE BILIRUBIN NEGATIVE (NEGATIVE); URINE COLOR YELLOW; URINE GLUCOSE (UA) NEGATIVE (NEGATIVE); URINE KETONE NEGATIVE (NEGATIVE); URINE LEUK ESTERASE NEGATIVE (NEGATIVE); URINE NITRITE NEGATIVE (NEGATIVE); URINE PROTEIN NEGATIVE (NEGATIVE); URINE UROBILINOGEN 0.2 mg/dL (0.2-1.0)
[2021-01-24] MEDS: HYDROCORTISONE 1% TOPICAL CREAM 30 GM TUBE TP SCH ×2 (12:45→23:16)
[2021-01-24] MEDS: MELATONIN 5 MG TABLETS PO SCH (22:07)
[2021-01-24] MEDS: QUEtiapine FUMARATE 50 MG TABLET PO SCH (22:09)
[2021-01-24] MEDS: THIAMINE HCL 100 MG TABLET (FP) PO SCH (22:09)
[2021-01-25 07:38] VITALS: BP 100/61; PULSE 80; TEMP 97.1
[2021-01-25] MEDS: hydrOXYzine PAMOATE 25 MG CAPSULE (FP) PO PRN (08:48)
[2021-01-25] MEDS: PRENATAL VITAMINS W/ FOLIC ACID TABLET (FP) PO SCH (10:43)
[2021-01-25] MEDS: HYDROCORTISONE 1% TOPICAL CREAM 30 GM TUBE TP SCH (10:43)
[2021-01-25] MEDS: NICOTINE 7 MG/24 HOURS TOPICAL PATCH TD SCH (10:44)
[2021-01-25] MEDS ORDERED: METHOCARBAMOL 500 MG TABLET PO PRN (11:30)
[2021-01-25] MEDS ORDERED: DOCUSATE SODIUM 100 MG CAPSULE (FP) PO SCH (22:00)
== END 2021-01-25 15:40 | disposition home or self-care (01) | DRG 772 ==
LOC: YASAS 12:44 → Y5N 12:46
PROVIDERS: ADMIT Allergy & Immunology; ATTEND Allergy & Immunology
PROC: HZ42ZZZ Group Counseling for Substance Abuse Treatment, Cognitive-Behavioral (ICD-10-PCS; principal; 2021-01-23)
DX: F11.20 Opioid dependence, uncomplicated (principal); F10.20 Alcohol dependence, uncomplicated; F12.20 Cannabis dependence, uncomplicated; F17.210 Nicotine dependence, cigarettes, uncomplicated; F41.9 Anxiety disorder, unspecified; F32.9 Major depressive disorder, single episode, unspecified; K59.01 Slow transit constipation; K64.9 Unspecified hemorrhoids; L25.9 Unspecified contact dermatitis, unspecified cause; M54.5 Low back pain; G47.00 Insomnia, unspecified; R73.9 Hyperglycemia, unspecified; R63.4 Abnormal weight loss; Z68.20 Body mass index [BMI] 20.0-20.9, adult; Z91.19 Patient's noncompliance with other medical treatment and regimen
CPT/HCPCS: 81003; 82962; 83036